=== PATIENT | female | born 1970 | race African-American/Black ===

== ENCOUNTER 2016-12-02 23:12 | Emergency (ER) | payer OTHER ==
[~2016-12-02] VITALS: Ht 165.1 cm; Wt 76.0 kg
[~2016-12-02 23:12] MED LIST: GABA100C4 PO; HYDR-3129 PO; JUNE1.5T PO; SPRI28TA PO; XANA1TAB6 PO
[2016-12-02 23:14] VITALS: BP 161/97; PULSE 76; RESP 16; TEMP 98.2; O2SAT 100
[2016-12-03] MEDS ORDERED: NEUR800T PO (00:48)
[2016-12-03] MEDS ORDERED: XANA1TAB2 PO (00:48)
[2016-12-03] MEDS ORDERED: HYDR-3535 PO (00:48)
[2016-12-03] MEDS ORDERED: METHOCARBAMOL 500 MG TAB PO ONE (01:15)
--- NOTE | 2016-12-03 01:15 | PD ---
HPI Chief Complaint: Pain: Acute or Chronic Time Seen by Provider: 01:11 Travel History International Travel<30 days: No Contact w/Intl Traveler<30days: No Traveled to known affect area: No History of Present Illness HPI Patient comes in complaining of right shoulder pain ongoing for 3 days. Patient states she was hit in the right shoulder by a garage door 3 days ago having throbbing aching pain radiates back and forth between her shoulder and neck is worse with movement right upper shoulder. Patient since developed right upper anterior chest wall pain is worse with deep inspiration. Patient states she's been taking her Lortab, gabapentin, and ibuprofen with no improvement of her symptoms. Patient denies any other known trauma, shortness of breath, numbness or tingling, headache, loss or change in bowel or bladder, or fevers. PFSH Past Medical History Arthritis: Yes Blood Disorders: No Anxiety: Yes Depression: Yes Heart Rhythm Problems: No Cancer: No Cardiac Catheterization: No Cardiovascular Problems: No High Cholesterol: No Congestive Heart Failure: No Diabetes: No Diminished Hearing: No Endocrine: No Gastrointestinal Disorders: No Genitourinary: No Headaches: Yes Hypertension: No Immune Disorder: No Musculoskeletal: Yes (CHRONIC BACK PAIN) Neurologic: Yes (CHRONIC BACK PAIN) Psychiatric: No Reproductive: Yes Respiratory: Yes Immunizations Current: Yes PNEUMOCCOCAL Vaccine (Year): 2 ?: Not LMP: 11/10/16 : 3 Para: 2 Miscarriage: 0 : 0 Ectopic : Yes Dilation and Curettage (D&C): Yes Tubal Ligation: Yes Past Surgical History Abdominal Surgery: Yes (SPLEEN REMOVED AT AGE OF 3 S/P TRAUMA) Body Medical Devices: TITANIUM ANUSHA L5/S1 Coronary Artery Bypass Graft: No Endocrine Surgery: Yes (SPLEEN REMOVAL) Insulin Pump: No Other Surgery: Yes (SPLEENECTOMY) Family History Family Myocardial Infarction: Yes Social History Alcohol Use: Yes (OCCASIONAL) Tobacco Use: No Substance Use: No Allergies-Medications (Allergen,Severity, Reaction): Coded Allergies: Flagyl (Verified Allergy, Severe, NAUSEA/VOMITING, 12/03/16) Sulfa (Verified Allergy, Severe, Nausea/Vomiting, 12/03/16) Morphine (Unverified Adverse Reaction, Intermediate, NAUSEA/VOMITING, 12/03) Reported Meds & Prescriptions Reported Meds & Active Scripts Active Robaxin (Methocarbamol) 750 Mg Tab 750 Mg PO Q8HR PRN Reported Lortab (Hydrocodone-Acetaminophen) 10-325 Mg Tab 1 Tab PO Q6H PRN Neurontin (Gabapentin) 800 Mg Tab 800 Mg PO TID Xanax (Alprazolam) 1 Mg Tab 1 Mg PO Q8H PRN Review of Systems Except as stated in HPI: all other systems reviewed are Neg Physical Exam Narrative GENERAL: Well-developed, overly nourished, in no acute distress, and non-ill appearing. SKIN: Warm and dry. HEAD: Atraumatic. Normocephalic. EYES: Pupils equal and round. EOMI. No scleral icterus. No injection or drainage. ENT: No nasal bleeding or discharge. Mucous membranes pink and moist. NECK: Trachea midline. Supple. No nuclear rigidity. CARDIOVASCULAR: Regular rate and rhythm. No murmur appreciated. Radial pulses 2+ Bilaterally. Capillary refill is 2 seconds. RESPIRATORY: No accessory muscle use. No respiratory distress. Clear to auscultation. Breath sounds equal bilaterally. MUSCULOSKELETAL: No obvious deformities. No clubbing. No cyanosis. No edema. Full range of motion.Shoulder:FROM equal BL with passive flexion, extension, Abduction, Adduction, internal/external rotation, and pronation/supination. Sensation equal BL deltoid muscles. Pulses equal BL distal to injury. Capillary refill less than 2 seconds distal to injury and equal BL. FROM distal to injury and equal BL. Strength distal to injury equal BL. NV intact distal to injury equal BL. Flexion and extension of thumb equal BL. Equal strength and movement with abduction/adductions of BL fingers. Metalizing Supervisor strength equal BL. Patient reports pain to palpation anterior aspect of right shoulder that is worse with passive movement. NEUROLOGICAL: Awake and alert. No obvious cranial nerve deficits. Motor grossly within normal limits. Normal speech. PSYCHIATRIC: Appropriate mood and affect; insight and judgment normal. Data Data Last Documented VS Vital Signs Date Time Temp Pulse Resp B/P Pulse Ox O2 Delivery O2 Flow Rate FiO2 12/03/16 00:48 14 12/02/16 23:14 98.2 76 161/97 100 Orders Chest, Single Ap (12/03/16 ) Shoulder, Complete (>2vws) (12/03/16 ) Methocarbamol (Robaxin) (12/03/16 01:15) Splint Or Brace Apply/Monitor (12/03/16 02:10) Dexamethasone Inj (Decadron Inj) (12/03/16 02:15) MDM Medical Decision Making Medical Screen Exam Complete: Yes Emergency Medical Condition: Yes Differential Diagnosis Fracture, strain, contusion, pneumothorax, costochondritis, other Narrative Course There is no clinical evidence for fracture. There is no clinical evidence to suspect bony injury by exam. Radiographic examination revealed no fracture seen at this time. No obvious ligamental injury or internal derangement is noted at this time. The distal extremity appears neurovascularly intact, without evidence of neurovascular injury nor compartment syndrome. Tendon exam also was intact. The effected limb was splinted. The patient was discharged and given warnings for vascular compromise. The patient is to follow up with Orthopedics. The patient agrees with plan. Patient in no obvious distress upon re-evaluation. All pertinent Radiology result(s) discussed with patient. Patient was asked if they wanted to speak to my attending, which the patient did not wish to do at this time. Any questions/ concerns in reference to patient diagnosis/condition discussed and clarified prior to patient's discharge. Reinforced sheer importance of close follow up with patient's primary physician or primary care clinic and/or orthopedics. Instructed patient to return to ED immediately, if symptoms return/worsen. Pt showed understanding of above instructions. Further instructions and recommendations were detailed in discharge paperwork. Pt ambulated without difficulty out of ED at discharge. Diagnosis Primary Impression: Right shoulder injury Qualified Code: S49.91XA - Right shoulder injury, initial encounter Patient Instructions: General Instructions, How to Use a Sling (GEN), Shoulder Pain (ED) Additional Instructions: Follow-up with your primary care physician and/or orthopedics this week for reevaluation. Take all medication as prescribed. Wear sling as needed for comfort. Return to the emergency department if symptoms get worse. Med/Other Pt SpecificInfo: Prescription(s) given Scripts Methocarbamol (Robaxin)750 Mg [id number] Mg PO Q8HR PRN (MUSCLE PAIN) #12 TAB Ref 0 Prov:Richy Quinones MD 12/03/16 Disposition: 01 DISCHARGE HOME Condition: Stable Sulaiman Davis Dec 03, 2016 01:15
--- NOTE | 2016-12-03 01:53 | RADRPT ---
EXAM DATE/TIME: 12/03/2016 01:42 [facility] COMPARISON: No previous studies available for comparison. INDICATIONS : Right shoulder and neck pain from a crushing injury brought on by a garage door. MEDICAL HISTORY : None. SURGICAL HISTORY : None. ENCOUNTER: Initial ACUITY: 4 - 6 days PAIN SCORE: 9/10 LOCATION: Right shoulder FINDINGS: No fracture is seen. The glenohumeral joint appears aligned. There is some narrowing of the glenohume ral joint. There is a bony density seen inferior to the medial aspect of the humeral head likely rela jairo to prior hypertrophic change versus less likely a loose body. CONCLUSION: Suspected degenerative change at the glenohumeral joint with prominent hypertrophic change at the inf erior medial humeral head. Brock Causey MD on December 03, 2016 at 1:47 Board Certified Radiologist. This report was verified electronically.
--- NOTE | 2016-12-03 02:04 | RADRPT ---
EXAM DATE/TIME: 12/03/2016 01:41 [facility] COMPARISON: CHEST SINGLE AP, March 18, 2016, 22:40. INDICATIONS : Right shoulder and neck pain from a crushing injury brought on by a garage door. MEDICAL HISTORY : None. SURGICAL HISTORY : None. ENCOUNTER: Initial ACUITY: 4 - 6 days PAIN SCORE: 9/10 LOCATION: Right Shoulder. FINDINGS: A single view of the chest demonstrates the lungs to be symmetrically aerated without evidence of mas s, infiltrate or effusion. The cardiomediastinal contours are unremarkable. Spurs are seen the thora cic spine. CONCLUSION: No acute disease. Brock Causey MD on December 03, 2016 at 2:02 Board Certified Radiologist. This report was verified electronically.
[2016-12-03] MEDS ORDERED: ROBA750T PO (02:12)
[2016-12-03] MEDS ORDERED: DEXAMETHASONE SOD PHOS 4 MG/ML VIAL IM ONE (02:15)
== END 2016-12-03 02:38 | disposition home or self-care (01) ==
LOC: NEPB 23:12
DX: S49.91XA Unspecified injury of right shoulder and upper arm, initial encounter (principal); W20.8XXA Other cause of strike by thrown, projected or falling object, initial encounter; Y92.008 Other place in unspecified non-institutional (private) residence as the place of occurrence of the external cause; Y99.8 Other external cause status
CPT/HCPCS: 71010; 73030; 96372; 99283; J1100

== ENCOUNTER 2017-03-29 00:26 | Emergency (ER) | payer OTHER ==
[~2017-03-29] VITALS: Ht 167.6 cm; Wt 76.0 kg
[~2017-03-29 00:26] MED LIST changes: -GABA100C4 PO; -HYDR-3129 PO; +HYDR-3535 PO; -JUNE1.5T PO; +NEUR800T PO; +ROBA750T PO; -SPRI28TA PO; +XANA1TAB2 PO; -XANA1TAB6 PO
[2017-03-29 00:31] VITALS: BP 163/101; PULSE 74; RESP 18; TEMP 98.9; O2SAT 97
[2017-03-29] MEDS ORDERED: NEUR300C PO (00:46)
--- NOTE | 2017-03-29 00:57 | PD ---
HPI Chief Complaint: Back/ Neck Pain or Injury Time Seen by Provider: 00:53 Travel History International Travel<30 days: No Contact w/Intl Traveler<30days: No Traveled to known affect area: No History of Present Illness HPI 46-year-old white female presents to emergency Department with complaints of worsening chronic back pain with right sciatica. She states that she is under the care of Dr. Dorsey her pain doctor. She was seen last . She was told to increase her Lortab tens to 6 times a day. She states that she also had been seen by her primary care doctor. She states that she does have flare ups of her chronic back pain with sciatica in the past but this seems worse than usual. She states that her right leg gives out due to pain. She denies any acute bowel or bladder changes. No focal numbness or tingling. No recent trauma. History of lumbar discectomy and fusion in the past. PFSH Past Medical History Arthritis: Yes Blood Disorders: No Anxiety: Yes Depression: Yes Heart Rhythm Problems: No Cancer: No Cardiac Catheterization: No Cardiovascular Problems: No High Cholesterol: No Congestive Heart Failure: No Diabetes: No Diminished Hearing: No Endocrine: No Gastrointestinal Disorders: No Genitourinary: No Headaches: Yes Hypertension: No Immune Disorder: No Musculoskeletal: Yes (CHRONIC BACK PAIN) Neurologic: Yes (CHRONIC BACK PAIN) Psychiatric: No Reproductive: Yes Respiratory: Yes Immunizations Current: Yes Tetanus Vaccination: < 5 Years PNEUMOCCOCAL Vaccine (Year): 2 ?: Not : 3 Para: 2 Miscarriage: 0 : 0 Ectopic : Yes Dilation and Curettage (D&C): Yes Tubal Ligation: Yes Past Surgical History Abdominal Surgery: Yes (SPLEEN REMOVED AT AGE OF 3 S/P TRAUMA) Body Medical Devices: TITANIUM ANUSHA L5/S1 Coronary Artery Bypass Graft: No Endocrine Surgery: Yes (SPLEEN REMOVAL) Insulin Pump: No Other Surgery: Yes (SPLEENECTOMY) Family History Family Myocardial Infarction: Yes Social History Alcohol Use: Yes (OCCASIONAL) Tobacco Use: No Substance Use: No Allergies-Medications (Allergen,Severity, Reaction): Coded Allergies: Flagyl (Verified Allergy, Severe, NAUSEA/VOMITING, 03/29/17) Sulfa (Verified Allergy, Severe, Nausea/Vomiting, 03/29/17) Morphine (Unverified Adverse Reaction, Intermediate, NAUSEA/VOMITING, 03/29) Reported Meds & Prescriptions Reported Meds & Active Scripts Active Reported Neurontin (Gabapentin) 300 Mg Cap 900 Mg PO TID Lortab (Hydrocodone-Acetaminophen) 10-325 Mg Tab 1 Tab PO Q6H PRN Xanax (Alprazolam) 1 Mg Tab 1 Mg PO Q8H PRN Review of Systems Except as stated in HPI: all other systems reviewed are Neg Physical Exam Narrative GENERAL: Well-developed, well-nourished in no acute distress. Nontoxic appearing. HEAD: Normocephalic, atraumatic. EYES: Pupils equal round and reactive. Extraocular motions intact. No scleral icterus. No injection or drainage. ENT: TMs clear without erythema. The external auditory canals clear. Nose: clear . Posterior pharynx is pink and moist. No tonsillar edema or exudate. Uvula midline. Airway patent. NECK: Trachea midline.Supple, nontender, moves head freely. No central bony tenderness or spasm. CARDIOVASCULAR: Regular rate and rhythm without murmurs, gallops, or rubs. RESPIRATORY: Clear to auscultation. Breath sounds equal bilaterally. No wheezes , rales, or rhonchi. GASTROINTESTINAL: Abdomen soft, non-tender, nondistended. No hepato-splenomegaly , or palpable masses. No guarding. EXTREMITIES: No clubbing, cyanosis, or edema. No joint tenderness, effusion, or edema noted. BACK: No central bony tenderness. Without deformity or crepitance. No flank tenderness. Patient complains of right paralumbar and right SI region tenderness. Positive straight leg raise on the right at 90. Patient is able to heel and toe stand. Deep tendon reflexes are 3+ bilaterally. Patient is able to sit up in bed at 90. She swings her legs over the edge of the bed and stands up freely. No saddle anesthesia. Data Data Last Documented VS Vital Signs Date Time Temp Pulse Resp B/P Pulse Ox O2 Delivery O2 Flow Rate FiO2 03/29/17 00:31 98.9 74 18 163/101 97 Room Air MDM Medical Decision Making Medical Screen Exam Complete: Yes Emergency Medical Condition: Yes Medical Record Reviewed: Yes Differential Diagnosis MDM: High Differential diagnoses: Fracture, sprain, strain, HNP, nerve or vascular injury , epidural abscess, pilonidal cyst Narrative Course This is acute exacerbation of chronic back pain with right sciatica. I've agreed to give the patient a shot of Decadron 10 mg IM, and Dilaudid 1 mg IM. She is also given 25 mg of Phenergan by mouth. Diagnosis Primary Impression: acute exacerbation of chronic back pain with sciatica Patient Instructions: Narcotic given in the ED Additional Instructions: Rest. Follow-up with your doctor Willian or your primary care doctor tomorrow for further pain control and workup of your worsening pain. Med/Other Pt SpecificInfo: No Change to Meds Disposition: 01 DISCHARGE HOME Condition: Stable Pantera Lenz Mar 29, 2017 00:57
[2017-03-29] MEDS ORDERED: PROMETHAZINE HCL 25 MG TAB PO ONE (01:00)
[2017-03-29] MEDS ORDERED: DEXAMETHASONE SOD PHOS 20 MG/5 ML VIAL IM ONE (01:00)
[2017-03-29] MEDS ORDERED: HYDROmorphone HCL PF 1 MG/ML VIAL IM ONE (01:00)
== END 2017-03-29 02:23 | disposition home or self-care (01) ==
LOC: NEPD 00:26
DX: M54.41 Lumbago with sciatica, right side (principal)
CPT/HCPCS: 96372; 99284; J1100; J1170; Q0169

== ENCOUNTER 2017-07-23 15:46 | Emergency (ER) | payer OTHER ==
[~2017-07-23] VITALS: Ht 167.6 cm; Wt 77.0 kg
[~2017-07-23 15:46] MED LIST changes: +NEUR300C PO; -NEUR800T PO; -ROBA750T PO
[2017-07-23 15:47] VITALS: BP 165/85; PULSE 84; RESP 16; TEMP 98.2; O2SAT 98
--- NOTE | 2017-07-23 16:05 | PD ---
Physical Exam Date Seen by Provider: Jul 23, 2017 Time Seen by Provider: 16:04 Narrative 46 yo female for evaluation of SOB. History of SOB for four days. No chest pain. Rest makes it better. No history of this. No injuries. Vitals are stable in triage. Awaiting bed placement. Data Data Last Documented VS Vital Signs Date Time Temp Pulse Resp B/P (MAP) Pulse Ox O2 Delivery O2 Flow Rate FiO2 07/23/17 15:47 98.2 84 16 165/85 (111) 98 Orders Orders Chest, Single Ap (07/23/17 ) [facility] Medical Record Reviewed: Yes Supervised Visit with MARIEL: No Sunil Fry Jul 23, 2017 16:05
--- NOTE | 2017-07-23 17:02 | RADRPT ---
EXAM DATE/TIME: 07/23/2017 16:31 [facility] COMPARISON: No previous studies available for comparison. INDICATIONS : Short of breath MEDICAL HISTORY : None. SURGICAL HISTORY : None. ENCOUNTER: Initial ACUITY: 4 - 6 days PAIN SCORE: 4/10 LOCATION: Bilateral chest FINDINGS: PA and lateral views of the chest demonstrate the lungs to be symmetrically aerated without evidence of mass, infiltrate or effusion. The cardiomediastinal contours are unremarkable. Osseous structure s are intact. There is multilevel degenerative change throughout the spine. CONCLUSION: 1. No acute cardiopulmonary disease. Nicholas Martínez MD on July 23, 2017 at 17:00 Board Certified Radiologist. This report was verified electronically.
[2017-07-23 19:20] VITALS: BP 149/90; PULSE 82; RESP 18; O2SAT 99
[2017-07-23] MEDS ORDERED: LAMI250T PO (19:24)
[2017-07-23] MEDS ORDERED: SODIUM CHLORIDE 0.9% FLUSH 10 ML FLUSH IVF PRN (19:30)
[2017-07-23 20:06] LABS: AUTOMATED NEUTROPHIL # 3.9 TH/MM3 (1.8-7.7); BASOPHIL % 0.6 % (0.0-2.0); EOSINOPHIL # 0.1 TH/MM3 (0-0.4); EOSINOPHIL % 0.8 % (0.0-4.0); HEMATOCRIT 41.9 % (35.0-46.0); HEMO FLAGS DIFF FINAL; LYMPH % 34.6 % (9.0-44.0); LYMPHOCYTE # 2.5 TH/MM3 (1.0-4.8); MEAN CELL VOLUME 96.5 FL (80.0-100.0); MEAN CORPUSCULAR HEMOGLOBIN 32.9 PG (27.0-34.0); MEAN CORPUSCULAR HGB CONC 34.1 % (32.0-36.0); MONO % 8.9 % (0.0-8.0); NEUT % 55.1 % (16.0-70.0); PLATELET COUNT 328 TH/MM3 (150-450); RED BLOOD COUNT 4.34 MIL/MM3 (4.00-5.30); RED CELL DISTRIBUTION WIDTH 13.2 % (11.6-17.2); WHITE BLOOD COUNT 7.1 TH/MM3 (4.0-11.0)
[2017-07-23 20:23] LABS: BLOOD, URINE TRACE (NEG); COMMENT (UR) CULT NOT INDICATED; CULTURE IF INDICATED CULT NOT INDICATED; GLUCOSE,URINE NEG (NEG); KETONE, URINE NEG (NEG); MUCUS URINE FEW /lpf (OCC); NITRITE,URINE NEG (NEG); SQUAMOUS EPITHELIAL CELL URINE 1 /hpf (0-5); URINE COLOR YELLOW (YELLW/STRAW)
[2017-07-23 20:26] LABS: ANION GAP 9 MEQ/L (5-15); BICARBONATE 22.3 MEQ/L (21.0-32.0); BLOOD UREA NITROGEN 12 MG/DL (7-18); CHLORIDE 107 MEQ/L (98-107); GLOMERULAR FILTRATION RATE 90 ML/MIN (>89); MAGNESIUM 2.3 MG/DL (1.5-2.5); POTASSIUM 3.7 MEQ/L (3.5-5.1); SODIUM (NA) 138 MEQ/L (136-145)
[2017-07-23 20:28] LABS: CREATINE KINASE 106 U/L (26-192)
[2017-07-23 20:40] LABS: CKMB 0.7 NG/ML (0.5-3.6)
[2017-07-23] MEDS ORDERED: IOHEXOL 350 MG/ML 10 ML VIAL (for RAD DIAG) IVCONTRAST ONE (22:45)
--- NOTE | 2017-07-23 22:50 | RADRPT ---
EXAM DATE/TIME: 07/23/2017 22:25 [facility] COMPARISON: No previous studies available for comparison. INDICATIONS : Shortness of breath x5 days. IV CONTRAST: 75 cc Omnipaque 350 (iohexol) IV RADIATION DOSE: 7.86 CTDIvol (mGy) MEDICAL HISTORY : None SURGICAL HISTORY : Splenectomy. Tubal ligation. ENCOUNTER: Initial ACUITY: 4 - 6 days PAIN SCALE: 0/10 LOCATION: chest TECHNIQUE: Volumetric scanning of the chest was performed using a pulmonary embolism protocol MIP images were re constructed. Using automated exposure control and adjustment of the mA and/or kV according to patien t size, radiation dose was kept as low as reasonably achievable to obtain optimal diagnostic quality images. DICOM format image data is available electronically for review and comparison. Follow-up recommendations for detected pulmonary nodules are based at a minimum on nodule size and pa tient risk factors according to Fleischner Society Guidelines. FINDINGS: PULMONARY ARTERIES: No filling defects are seen in the pulmonary arteries through the segmental level. LUNGS: There is no consolidation or pneumothorax . No concerning pulmonary nodule is visualized. PLEURAE: There is no pleural thickening or pleural effusion. MEDIASTINUM: There is good visualization of the great vessels of the middle mediastinum. No evidence of mediastin al or hilar adenopathy/mass. MUSCULOSKELETAL: Within normal limits for patient age. MISCELLANEOUS: The visualized upper abdominal organs demonstrate no acute abnormality. CONCLUSION: No evidence of pulmonary embolism Brock Watkins MD on July 23, 2017 at 22:46 Board Certified Radiologist. This report was verified electronically.
[2017-07-23 23:13] VITALS: BP 133/82; PULSE 81; RESP 16; O2SAT 100
[2017-07-24] MEDS ORDERED: ALBU6.7H INH (00:09)
--- NOTE | 2017-07-24 00:11 | PD ---
HPI Chief Complaint: Respiratory Symptoms Time Seen by Provider: 19:19 Travel History International Travel<30 days: No Contact w/Intl Traveler<30days: No Traveled to known affect area: No History of Present Illness HPI 46-year-old female presents to the emergency department for 4 days of shortness of breath. Patient states that she does not recall any fever or chills. Patient does have sinus congestion and sinus drainage. Patient has had nonproductive cough. Patient has also had ear pain. Patient denies any neck pain or stiffness. Chest pain is worsened by deep inspiration and improves with shallow breathing. Patient denies any long distance travel protracted bedrest surgical procedure or personal history of clotting disorder. Patient states mother has had blood clots in her legs in the past. Patient rates pain as moderate. Patient has taken no medications for symptom relief. Patient is not taken ibuprofen. Patient states that she's had no abdominal pain no flank pain no dysuria frequency or urgency. Patient has not noticed any lower extremity pain or swelling. PFSH Past Medical History Narrative Medical No tobacco use nursing notes reviewed Anxiety depression arthritis Arthritis: Yes Blood Disorders: No Anxiety: Yes Depression: Yes Heart Rhythm Problems: No Cancer: No Cardiac Catheterization: No Cardiovascular Problems: No High Cholesterol: No Congestive Heart Failure: No Diabetes: No Diminished Hearing: No Endocrine: No Gastrointestinal Disorders: No Genitourinary: No Headaches: Yes Hypertension: No Immune Disorder: No Musculoskeletal: Yes (CHRONIC BACK PAIN) Neurologic: Yes (CHRONIC BACK PAIN) Psychiatric: No Reproductive: Yes Respiratory: Yes Immunizations Current: Yes Tetanus Vaccination: > 5 Years Influenza Vaccination: No PNEUMOCCOCAL Vaccine (Year): 2 ?: Not LMP: 07/03/17 : 3 Para: 2 Miscarriage: 0 : 0 Ectopic : Yes Dilation and Curettage (D&C): Yes Tubal Ligation: Yes Past Surgical History Abdominal Surgery: Yes (SPLEEN REMOVED AT AGE OF 3 S/P TRAUMA) Body Medical Devices: TITANIUM ANUSHA L5/S1 Coronary Artery Bypass Graft: No Endocrine Surgery: Yes (SPLEEN REMOVAL) Insulin Pump: No Other Surgery: Yes (SPLEENECTOMY) Family History Family Myocardial Infarction: Yes Social History Alcohol Use: Yes ("OCCASIONALLY") Tobacco Use: No Substance Use: No Allergies-Medications (Allergen,Severity, Reaction): Coded Allergies: Sulfa (Sulfonamide Antibiotics) (Unverified Allergy, Severe, Nausea/ Vomiting, 07/23/17) metronidazole (Unverified Allergy, Severe, NAUSEA/VOMITING, 07/23/17) morphine (Unverified Adverse Reaction, Intermediate, NAUSEA/VOMITING, 07/30) Reported Meds & Prescriptions Reported Meds & Active Scripts Active Proventil Hfa 6.7 GM Inh (Albuterol Sulfate) 90 Mcg/Act Aer 2 Puff INH Q4-6H PRN Reported Lamisil (Terbinafine) 250 Mg Tab 250 Mg PO DAILY Neurontin (Gabapentin) 300 Mg Cap 900 Mg PO TID Lortab (Hydrocodone-Acetaminophen) 10-325 Mg Tab 1 Tab PO Q6H PRN Xanax (Alprazolam) 1 Mg Tab 1 Mg PO Q8H PRN Review of Systems Except as stated in HPI: all other systems reviewed are Neg General / Constitutional: No: Fever, Chills HENT: No: Congestion Cardiovascular: Positive: Chest Pain or Discomfort Respiratory: Positive: Shortness of Breath, Wheezing Gastrointestinal: No: Nausea, Vomiting, Abdominal Pain Genitourinary: No: Flank Pain Musculoskeletal: No: Myalgias, Arthralgias Skin: No Rash Neurologic: No: Weakness Psychiatric: No: Anxiety, Depression Hematologic/Lymphatic: No: Easy Bruising Physical Exam Narrative GENERAL: Well developed well-nourished female in no acute distress no respiratory distress SKIN: Warm and dry. HEAD: Normocephalic. EYES: No scleral icterus. No injection or drainage. NECK: Supple, trachea midline. No JVD or lymphadenopathy. CARDIOVASCULAR: Regular rate and rhythm without murmurs, gallops, or rubs. RESPIRATORY: Breath sounds equal bilaterally. No accessory muscle use. GASTROINTESTINAL: Abdomen soft, non-tender, nondistended. MUSCULOSKELETAL: No cyanosis, or edema. BACK: Nontender without obvious deformity. No CVA tenderness. Data Data Last Documented VS Vital Signs Date Time Temp Pulse Resp B/P (MAP) Pulse Ox O2 Delivery O2 Flow Rate FiO2 07/24/17 01:00 07/23/17 23:13 81 16 100 Room Air 07/23/17 15:47 98.2 Orders Orders Chest, Pa & Lat (07/23/17 ) Complete Blood Count With Diff (07/23/17 19:19) Basic Metabolic Panel (Bmp) (07/23/17 19:19) B-Type Natriuretic Peptide (07/23/17 19:19) Magnesium (Mg) (07/23/17 19:19) Ckmb (Isoenzyme) Profile (07/23/17 19:19) Troponin I (07/23/17 19:19) Urinalysis - C+S If Indicated (07/23/17 19:19) Iv Access Insert/Monitor (07/23/17 19:19) Electrocardiogram (07/23/17 19:19) Ecg Monitoring (07/23/17:19) Oximetry (07/23/17:19) Oxygen Administration (07/23/17 19:19) Sodium Chloride 0.9% Flush (Ns Flush) (07/23/17 19:30) Ed Urine Pregnancytest Poc (07/23/17:19) Influenzae A/B Antigen (07/23/17 19:19) CKMB (07/23/17 19:30) CKMB% (07/23/17 19:30) D-Dimer (07/23/17 20:50) Ct Pulmonary Angiogram (07/23/17 ) Iohexol 350 Inj (Omnipaque 350 Inj) (07/23/17 22:45) Ed Discharge Order (07/24/17 00:05) Labs Laboratory Tests Test 07/23/17 19:30 07/23/17 20:05 07/23/17 20:30 White Blood Count 7.1 TH/MM3 Red Blood Count 4.34 MIL/MM3 Hemoglobin 14.3 GM/DL Hematocrit 41.9 % Mean Corpuscular Volume 96.5 FL Mean Corpuscular Hemoglobin 32.9 PG Mean Corpuscular Hemoglobin Concent 34.1 % Red Cell Distribution Width 13.2 % Platelet Count 328 TH/MM3 Mean Platelet Volume 8.3 FL Neutrophils (%) (Auto) 55.1 % Lymphocytes (%) (Auto) 34.6 % Monocytes (%) (Auto) 8.9 % Eosinophils (%) (Auto) 0.8 % Basophils (%) (Auto) 0.6 % Neutrophils # (Auto) 3.9 TH/MM3 Lymphocytes # (Auto) 2.5 TH/MM3 Monocytes # (Auto) 0.6 TH/MM3 Eosinophils # (Auto) 0.1 TH/MM3 Basophils # (Auto) 0.0 TH/MM3 CBC Comment DIFF FINAL Differential Comment Blood Urea Nitrogen 12 MG/DL Creatinine 0.82 MG/DL Random Glucose 81 MG/DL Calcium Level 8.7 MG/DL Magnesium Level 2.3 MG/DL Sodium Level 138 MEQ/L Potassium Level 3.7 MEQ/L Chloride Level 107 MEQ/L Carbon Dioxide Level 22.3 MEQ/L Anion Gap 9 MEQ/L Estimat Glomerular Filtration Rate 90 ML/MIN Total Creatine Kinase 106 U/L Creatine Kinase MB 0.7 NG/ML Troponin I LESS THAN 0.02 NG/ML B-Type Natriuretic Peptide 17 PG/ML Urine Color YELLOW Urine Turbidity CLEAR Urine pH 6.0 Urine Specific [place] 1.025 Urine Protein TRACE mg/dL Urine Glucose (UA) NEG mg/dL Urine Ketones NEG mg/dL Urine Occult Blood TRACE Urine Nitrite NEG Urine Bilirubin NEG Urine Urobilinogen LESS THAN 2.0 MG/DL Urine Leukocyte Esterase NEG Urine RBC 10 /hpf Urine WBC 1 /hpf Urine Squamous Epithelial Cells 1 /hpf Urine Mucus FEW /lpf Microscopic Urinalysis Comment CULT NOT INDICATED D-Dimer Quantitative (PE/DVT) 0.64 MG/L FEU [facility] Medical Decision Making Medical Screen Exam Complete: Yes Emergency Medical Condition: Yes Medical Record Reviewed: Yes Interpretation(s) d-dimer: 0.64, elevated CTA pulmonary: no PE per reading radiologist Last Impressions Chest X-Ray 07/23/17 0000 Signed Impressions: Service Date/Time: Sunday, July 23, 2017 16:31 - CONCLUSION: 1. No acute cardiopulmonary disease. 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 Time to perform other separately billable procedures was not included in the critical care time. My time did not include minutes spent treating any other patients simultaneously or on activities that did not directly contribute to the patient's treatment. The services I provided to this patient were to treat and/or prevent clinically significant deterioration that could result in: Myocardial infarction pulmonary embolism I provided critical care services requiring my management, as noted below: Chart data review, documentation time, medication orders and management, vital sign assessments/reviewing monitor data, ordering and reviewing lab tests, ordering and interpreting/reviewing x-rays and diagnostic studies, care of the patient and discussion of the patient with the admitting physicians. Diagnosis Primary Impression: Shortness of breath Additional Impression: Allergic sinusitis Referrals: Primary Care Physician call for appointment Patient Instructions: General Instructions Additional Instructions: Increase fluid hydration Follow-up with primary care provider Use [id number] allergy/cough medication as directed May use prescription inhaler as needed for wheezing/shortness of breath Return to the emergency department for any concerns Med/Other Pt SpecificInfo: Prescription(s) given Scripts Albuterol 6.7 GM Inh (Proventil Hfa 6.7 GM Inh) 90 Mcg/Act Aer 2 PUFF INH Q4-6H Y for SHORTNESS OF BREATH, #1 INHALER 0 Refills Prov: Suri Yeager MD 07/24/17 Disposition: 01 DISCHARGE HOME Condition: Stable Suri Yeager MD Jul 24, 2017 00:11
--- NOTE | 2017-07-24 23:47 | EKG ---
Date Performed: 07/23/2017 Time Performed: 19:30:14 PTAGE: 46 years EKG: Sinus rhythm VOLTAGE CRITERIA FOR LVH ABNORMAL ECG PREVIOUS TRACING : 03/18/2016 21.33 Compared to the previous tracing, LVH criteria now present DOCTOR: Deion Quinones Interpretating Date/Time 07/24/2017 23:45:37
== END 2017-07-24 01:00 | disposition home or self-care (01) ==
LOC: NEPC 15:46
DX: R06.02 Shortness of breath (principal); J30.9 Allergic rhinitis, unspecified; R94.31 Abnormal electrocardiogram [ECG] [EKG]
CPT/HCPCS: 71020; 71275; 80048; 81001; 82550; 82552; 83735; 83880; 84484; 84703; 85025; 85379; 87804; 93005; 99291; Q9967

== ENCOUNTER 2017-08-09 21:56 | Emergency (ER) | payer OTHER ==
[~2017-08-09] VITALS: Ht 165.1 cm; Wt 75.5 kg
[~2017-08-09 21:56] MED LIST changes: +ALBU6.7H INH; +LAMI250T PO
[2017-08-09 22:01] VITALS: BP 143/88; PULSE 82; RESP 15; TEMP 97.8; O2SAT 82
--- NOTE | 2017-08-09 23:58 | RADRPT ---
EXAM DATE/TIME: 08/09/2017 23:42 [facility] COMPARISON: No previous studies available for comparison. INDICATIONS : Entire leg pain, most severe in the posterior area between knee and hip, from a fall six days ago. MEDICAL HISTORY : None. SURGICAL HISTORY : Splenectomy. Tubal ligation. ENCOUNTER: Initial ACUITY: 4 - 6 days PAIN SCORE: 6/10 LOCATION: Right leg FINDINGS: Two view examination of the right femur demonstrates no evidence of fracture or dislocation. Bony mi neralization is normal. The soft tissue structures are intact. CONCLUSION: Intact right femur. Brock Conner MD on August 09, 2017 at 23:56 Board Certified Radiologist. This report was verified electronically.
--- NOTE | 2017-08-09 23:59 | RADRPT ---
EXAM DATE/TIME: 08/09/2017 23:44 [facility] COMPARISON: No previous studies available for comparison. INDICATIONS : Entire leg pain, most severe in the posterior area between knee and hip, from a fall six days ago. MEDICAL HISTORY : None. SURGICAL HISTORY : Splenectomy. Tubal ligation. ENCOUNTER: Initial ACUITY: 4 - 6 days PAIN SCORE: 6/10 LOCATION: Right leg FINDINGS: Four view examination of the right knee demonstrates no evidence of fracture or dislocation. Bony mi neralization is normal. The articular surfaces are intact. The suprapatellar soft tissues have a no rmal configuration. CONCLUSION: No fracture, subluxation or effusion of the right knee. Brock Conner MD on August 09, 2017 at 23:58 Board Certified Radiologist. This report was verified electronically.
--- NOTE | 2017-08-10 | RADRPT ---
EXAM DATE/TIME: 08/09/2017 23:46 [facility] COMPARISON: No previous studies available for comparison. INDICATIONS : Entire leg pain, most severe in the posterior area between knee and hip, from a fall six days ago. MEDICAL HISTORY : None. SURGICAL HISTORY : Splenectomy. Tubal ligation. ENCOUNTER: Initial ACUITY: 4 - 6 days PAIN SCORE: 6/10 LOCATION: Right leg FINDINGS: Right tibia and fibula are intact an abnormal morphology. Mild pretibial soft tissue swelling at the level of the proximal/mid shaft. No radiopaque foreign body. CONCLUSION: Intact right tibia and fibula. Brock Conner MD on August 09, 2017 at 23:59 Board Certified Radiologist. This report was verified electronically.
--- NOTE | 2017-08-10 00:11 | PD ---
HPI Chief Complaint: Injury Time Seen by Provider: 23:00 Travel History International Travel<30 days: No Contact w/Intl Traveler<30days: No Traveled to known affect area: No History of Present Illness HPI This is a 46-year-old female who presents to the emergency department having fallen several days ago on a slippery floor injuring her right leg. Since then she's had severe pain in her right leg, constant, worse with weightbearing, improved with rest associated with bruising and swelling. She says her leg is painful from the mid thigh all the way down to her foot. She denies any other injuries. PFSH Past Medical History Arthritis: Yes Blood Disorders: No Anxiety: Yes Depression: Yes Heart Rhythm Problems: No Cancer: No Cardiac Catheterization: No Cardiovascular Problems: No High Cholesterol: No Congestive Heart Failure: No Diabetes: No Diminished Hearing: No Endocrine: No Gastrointestinal Disorders: No Genitourinary: No Headaches: Yes Hypertension: No Immune Disorder: No Musculoskeletal: Yes (CHRONIC BACK PAIN) Neurologic: Yes (CHRONIC BACK PAIN) Psychiatric: No Reproductive: Yes Respiratory: Yes Immunizations Current: Yes PNEUMOCCOCAL Vaccine (Year): 2 ?: Not LMP: 07/22/17 : 3 Para: 2 Miscarriage: 0 : 0 Ectopic : Yes Dilation and Curettage (D&C): Yes Tubal Ligation: Yes Past Surgical History Abdominal Surgery: Yes (SPLEEN REMOVED AT AGE OF 3 S/P TRAUMA) Body Medical Devices: TITANIUM ANUSHA L5/S1 Coronary Artery Bypass Graft: No Endocrine Surgery: Yes (SPLEEN REMOVAL) Insulin Pump: No Other Surgery: Yes (SPLEENECTOMY) Family History Family Myocardial Infarction: Yes Social History Alcohol Use: Yes ("OCCASIONALLY") Tobacco Use: No Substance Use: No Allergies-Medications (Allergen,Severity, Reaction): Coded Allergies: Sulfa (Sulfonamide Antibiotics) (Verified Allergy, Severe, Nausea/Vomiting , 08/09/17) metronidazole (Verified Allergy, Severe, NAUSEA/VOMITING, 08/09/17) morphine (Verified Adverse Reaction, Intermediate, NAUSEA/VOMITING, ) Reported Meds & Prescriptions Reported Meds & Active Scripts Active Proventil Hfa 6.7 GM Inh (Albuterol Sulfate) 90 Mcg/Act Aer 2 Puff INH Q4-6H PRN Reported Lamisil (Terbinafine) 250 Mg Tab 250 Mg PO DAILY Neurontin (Gabapentin) 300 Mg Cap 900 Mg PO TID Lortab (Hydrocodone-Acetaminophen) 10-325 Mg Tab 1 Tab PO Q6H PRN Xanax (Alprazolam) 1 Mg Tab 1 Mg PO Q8H PRN Review of Systems General / Constitutional: No: Fever, Chills Cardiovascular: No: Chest Pain or Discomfort Physical Exam Narrative GENERAL:Well appearing, no acute distress SKIN: Ecchymoses over the posterior aspect of the right thigh and knee HEAD: Atraumatic. Normocephalic. EYES: Pupils equal and round. No injection or drainage. ENT: Moist mucous membranes NECK: Trachea midline. CARDIOVASCULAR: Regular rate and rhythm. No murmur appreciated. 2+ right DP pulse with normal capillary refill. RESPIRATORY: Clear to auscultation. Breath sounds equal bilaterally. GASTROINTESTINAL: Abdomen soft, non-tender, nondistended. MUSCULOSKELETAL: Swelling of the distal right thigh and upper right calf NEUROLOGICAL: Awake and alert. No obvious cranial nerve deficits. Moving all extremities. PSYCHIATRIC: Appropriate mood and affect; insight and judgment normal. Data Data Last Documented VS Vital Signs Date Time Temp Pulse Resp B/P (MAP) Pulse Ox O2 Delivery O2 Flow Rate FiO2 08/09/17 22:01 97.8 82 15 143/88 (106) 82 Room Air Orders Orders Femur (Ap & Lat/2vws) (08/09/17 ) Knee, Complete (4vws) (08/09/17 ) Tibia/Fibula (Ap/Lat) (08/09/17 ) MDM Medical Decision Making Medical Screen Exam Complete: Yes Emergency Medical Condition: Yes Differential Diagnosis Contusion, knee sprain, patella fracture, hematoma Narrative Course This is a 46-year-old female who presents to the emergency department having injured her right leg several days ago. She comes in for persistent pain and bruising. X-rays were obtained which were reassuring. I suspect she has a sprain. She was advised to Iván wrap and elevate the leg and follow-up with orthopedics if she is not improved in one week. Diagnosis Primary Impression: Contusion of right leg Qualified Codes: S80.11XA - Contusion of right lower leg, initial encounter Patient Instructions: General Instructions Additional Instructions: If you develop numbness, weakness or severe pain in the leg return to the emergency room. Follow-up with orthopedics in one week if you're not improved. Iván wrap and ice your leg. Med/Other Pt SpecificInfo: No Change to Meds Disposition: 01 DISCHARGE HOME Condition: Stable Loren Levi MD Aug 10, 2017 00:11
[2017-08-10 00:37] VITALS: BP 133/51
== END 2017-08-10 00:38 | disposition home or self-care (01) ==
LOC: NEPC 21:56
DX: S80.11XA Contusion of right lower leg, initial encounter (principal); M19.90 Unspecified osteoarthritis, unspecified site; F41.9 Anxiety disorder, unspecified; F32.9 Major depressive disorder, single episode, unspecified; W01.0XXA Fall on same level from slipping, tripping and stumbling without subsequent striking against object, initial encounter; Z88.5 Allergy status to narcotic agent; Z88.2 Allergy status to sulfonamides; Z79.899 Other long term (current) drug therapy; Z88.8 Allergy status to other drugs, medicaments and biological substances
CPT/HCPCS: 73552; 73564; 73590; 99283

== ENCOUNTER 2017-09-09 19:38 | Emergency (ER) | payer OTHER ==
[2017-09-09 19:40] VITALS: BP 164/92; PULSE 76; RESP 16; TEMP 98.4; O2SAT 96
[2017-09-09 20:53] LABS: BLOOD, URINE TRACE (NEG); COMMENT (UR) CULT NOT INDICATED; CULTURE IF INDICATED CULT NOT INDICATED; GLUCOSE,URINE NEG (NEG); KETONE, URINE NEG (NEG); MUCUS URINE FEW /lpf (OCC); NITRITE,URINE NEG (NEG); PH, URINE 6.5 (5.0-8.5); SQUAMOUS EPITHELIAL CELL URINE 2 /hpf (0-5); URINE COLOR YELLOW (YELLW/STRAW)
[2017-09-09] MEDS ORDERED: HYDR-3583 PO (20:54)
[2017-09-09 20:56] VITALS: BP 149/95; PULSE 86; RESP 18; O2SAT 99
[2017-09-09] MEDS ORDERED: SODIUM CHLOR 0.9% 1000 ML INJ 1,000 ML IV SCH (21:04)
[2017-09-09] MEDS ORDERED: SODIUM CHLORIDE 0.9% FLUSH 10 ML FLUSH IV FLUSH PRN (21:15)
[2017-09-09] MEDS ORDERED: ONDANSETRON HCL 4 MG/2 ML VIAL IVP ONE (21:15)
[2017-09-09] MEDS ORDERED: KETOROLAC TROMETHAMINE 30 MG/ML (IVP) VIAL IVP ONE (21:15)
[2017-09-09 22:11] LABS: AUTOMATED NEUTROPHIL # 3.5 TH/MM3 (1.8-7.7); BASOPHIL % 0.6 % (0.0-2.0); EOSINOPHIL # 0.1 TH/MM3 (0-0.4); EOSINOPHIL % 1.2 % (0.0-4.0); HEMATOCRIT 40.3 % (35.0-46.0); HEMO FLAGS DIFF FINAL; LYMPH % 37.2 % (9.0-44.0); LYMPHOCYTE # 2.5 TH/MM3 (1.0-4.8); MEAN CELL VOLUME 96.9 FL (80.0-100.0); MEAN CORPUSCULAR HEMOGLOBIN 33.2 PG (27.0-34.0); MEAN CORPUSCULAR HGB CONC 34.3 % (32.0-36.0); MONO % 8.7 % (0.0-8.0); NEUT % 52.3 % (16.0-70.0); PLATELET COUNT 296 TH/MM3 (150-450); RED BLOOD COUNT 4.16 MIL/MM3 (4.00-5.30); RED CELL DISTRIBUTION WIDTH 12.9 % (11.6-17.2); WHITE BLOOD COUNT 6.7 TH/MM3 (4.0-11.0)
[2017-09-09 22:24] LABS: APTT (PATIENT) 25.7 SEC (24.3-30.1); INTERNATIONAL NORMALIZED RATIO 0.9 RATIO; PROTHROMBIN TIME - PATIENT 9.6 SEC (9.8-11.6)
[2017-09-09 22:34] LABS: ANION GAP 8 MEQ/L (5-15); AST (GOT) 16 U/L (15-37); BICARBONATE 24.8 MEQ/L (21.0-32.0); BLOOD UREA NITROGEN 14 MG/DL (7-18); CHLORIDE 105 MEQ/L (98-107); GLOMERULAR FILTRATION RATE 83 ML/MIN (>89); POTASSIUM 3.4 MEQ/L (3.5-5.1); SODIUM (NA) 138 MEQ/L (136-145)
[2017-09-09 22:35] LABS: ALT (GPT) 18 U/L (10-53)
[2017-09-09 22:39] LABS: ALKALINE PHOSPHATASE 51 U/L (45-117); BETA HCG QUANT LESS THAN 1 MIU/ML (0-5); TOTAL BILIRUBIN ADULT 0.1 MG/DL (0.2-1.0)
--- NOTE | 2017-09-09 23:22 | RADRPT ---
EXAM DATE/TIME: 09/09/2017 22:54 [facility] COMPARISON: No previous studies available for comparison. INDICATIONS : Left back pain. ORAL CONTRAST: No oral contrast ingested. RADIATION DOSE: 8.14 CTDIvol (mGy) MEDICAL HISTORY : None SURGICAL HISTORY : Tubal ligation. Fusion, lumbar.Splenectomy. ENCOUNTER: Initial ACUITY: 1 day PAIN SCALE: 5/10 LOCATION: Left flank and back TECHNIQUE: Volumetric scanning of the abdomen and pelvis was performed. Using automated exposure control and ad justment of the mA and/or kV according to patient size, radiation dose was kept as low as reasonably achievable to obtain optimal diagnostic quality images. DICOM format image data is available electro nically for review and comparison. FINDINGS: LOWER LUNGS: The visualized lower lungs are clear. LIVER: Homogeneous density without lesion. Benign-appearing, punctate capsular calcification posteriorly in the right hepatic lobe. There is no dilation of the biliary tree. No calcified gallstones. SPLEEN: Normal size without lesion. PANCREAS: Within normal limits. KIDNEYS: Normal in size and shape. There is no mass, stone, or hydronephrosis. Benign-appearing cortical cyst posteromedially in the right middle pole ADRENAL GLANDS: Within normal limits. VASCULAR: There is no aortic aneurysm. BOWEL/MESENTERY: The stomach, small bowel, and colon demonstrate no acute abnormality. There is no free intraperitone al air or fluid. ABDOMINAL WALL: Within normal limits. RETROPERITONEUM: There is no lymphadenopathy. BLADDER: No wall thickening or mass. REPRODUCTIVE: Within normal limits. Probable 2.6 cm right ovarian cyst. INGUINAL: There is no lymphadenopathy or hernia. MUSCULOSKELETAL: Posterior fixation of the lumbosacral spine. Sclerosis about the SI joints bilaterally is characteris tic of bilateral sacroiliitis. CONCLUSION: 1. Posterior fixation of the lumbosacral spine with sclerosis about both SI joints characteristic of chronic sacroiliitis. 2. 2.6 cm probable right ovarian cyst. Benign-appearing right renal cortical cyst. 3. Otherwise, no acute intraperitoneal or pelvic process to explain current clinical symptoms Barrera Vines MD on September 09, 2017 at 23:16 Board Certified Radiologist. This report was verified electronically.
[2017-09-09 23:40] VITALS: BP 121/67; PULSE 74; RESP 18; O2SAT 98
[2017-09-10] MEDS ORDERED: TRAM50TA PO (00:16)
--- NOTE | 2017-09-10 00:16 | PD ---
HPI Chief Complaint: Flank/Kidney Pain Time Seen by Provider: 21:02 Travel History International Travel<30 days: No Contact w/Intl Traveler<30days: No Traveled to known affect area: No History of Present Illness HPI 46-year-old female here for evaluation of lower back pain. The patient reports history of chronic low back pain and has had surgery in her lumbar spine. She states that the pain is different now and is in her left flank and radiates to her left lower abdomen. She denies fevers or chills. No urinary symptoms. Pain is mild to moderate, sharp, shooting, worse with movements. She had one episode of urinary incontinence after coughing. Otherwise no urinary or bowel incontinence or retention. No fevers or chills. No nausea or vomiting. PFSH Past Medical History Arthritis: Yes Blood Disorders: No Anxiety: Yes Depression: Yes Heart Rhythm Problems: No Cancer: No Cardiac Catheterization: No Cardiovascular Problems: No High Cholesterol: No Congestive Heart Failure: No Diabetes: No Diminished Hearing: No Endocrine: No Gastrointestinal Disorders: No Genitourinary: No Headaches: Yes Hypertension: No Immune Disorder: No Musculoskeletal: Yes (CHRONIC BACK PAIN) Neurologic: Yes (CHRONIC BACK PAIN) Psychiatric: No Reproductive: Yes Respiratory: Yes Immunizations Current: Yes Tetanus Vaccination: < 5 Years Influenza Vaccination: Yes PNEUMOCCOCAL Vaccine (Year): 2 ?: Not LMP: 08/12/2017 : 3 Para: 2 Miscarriage: 0 : 0 Ectopic : Yes Dilation and Curettage (D&C): Yes Tubal Ligation: Yes Past Surgical History Abdominal Surgery: Yes (SPLEEN REMOVED AT AGE OF 3 S/P TRAUMA) Body Medical Devices: TITANIUM ANUSHA L5/S1 Coronary Artery Bypass Graft: No Endocrine Surgery: Yes (SPLEEN REMOVAL) Insulin Pump: No Other Surgery: Yes (SPLEENECTOMY) Family History Family Myocardial Infarction: Yes Social History Alcohol Use: Yes ("OCCASIONALLY") Tobacco Use: No Substance Use: No Allergies-Medications (Allergen,Severity, Reaction): Coded Allergies: Sulfa (Sulfonamide Antibiotics) (Verified Allergy, Severe, Nausea/Vomiting , 09/09/17) metronidazole (Verified Allergy, Severe, NAUSEA/VOMITING, 09/09/17) morphine (Verified Adverse Reaction, Intermediate, NAUSEA/VOMITING, ) Reported Meds & Prescriptions Reported Meds & Active Scripts Active Proventil Hfa 6.7 GM Inh (Albuterol Sulfate) 90 Mcg/Act Aer 2 Puff INH Q4-6H PRN Reported Hydrocodone-Acetamin 10-325 mg (Hydrocodone/Acetaminophen) 10 Mg-325 Mg Tablet 1 Tab PO Q4-6H Neurontin (Gabapentin) 300 Mg Cap 900 Mg PO TID Xanax (Alprazolam) 1 Mg Tab 1 Mg PO Q8H PRN Review of Systems Except as stated in HPI: all other systems reviewed are Neg Physical Exam Narrative GENERAL: Well-developed, well-nourished, comfortable, no apparent distress. SKIN: Focused skin assessment warm/dry. No rash. HEAD: Atraumatic. Normocephalic. EYES: Pupils equal and round. No scleral icterus. No injection or drainage. ENT: Mucous membranes pink and moist. NECK: Trachea midline. No JVD. CARDIOVASCULAR: Regular rate and rhythm. RESPIRATORY: No accessory muscle use. Clear to auscultation. Breath sounds equal bilaterally. GASTROINTESTINAL: Abdomen soft, non-tender, nondistended. MUSCULOSKELETAL: No obvious deformities. No clubbing. No cyanosis. No edema. No midline CVA tenderness. Mild left CVA tenderness. No right CVA tenderness. NEUROLOGICAL: Awake and alert. No obvious cranial nerve deficits. Motor grossly within normal limits. Normal speech. PSYCHIATRIC: Appropriate mood and affect; insight and judgment normal. Data Data Last Documented VS Vital Signs Date Time Temp Pulse Resp B/P (MAP) Pulse Ox O2 Delivery O2 Flow Rate FiO2 09/09/17 23:40 74 18 121/67 (85) 98 Room Air 09/09/17 19:40 98.4 Orders Orders Urinalysis - C+S If Indicated (09/09/17 20:03) Beta Hcg (Quant/Titer) (09/09/17 21:04) Complete Blood Count With Diff (09/09/17 21:04) Comprehensive Metabolic Panel (09/09/17 21:04) Prothrombin Time / Inr (Pt) (09/09/17 21:04) Act Partial Throm Time (Ptt) (09/09/17 21:04) Ct Abd/Pel W/O Iv Contrast (09/09/17 21:04) Iv Access Insert/Monitor (09/09/17 21:04) Ecg Monitoring (09/09/17 21:04) Oximetry (09/09/17 21:04) Ondansetron Inj (Zofran Inj) (09/09/17 21:15) Sodium Chlor 0.9% 1000 Ml Inj (Ns 1000 M (09/09/17 21:04) Sodium Chloride 0.9% Flush (Ns Flush) (09/09/17 21:15) Ketorolac Inj (Toradol Inj) (09/09/17 21:15) Labs Laboratory Tests Test 09/09/17 20:08 09/09/17 21:25 Urine Color YELLOW Urine Turbidity CLEAR Urine pH 6.5 Urine Specific [place] 1.021 Urine Protein NEG mg/dL Urine Glucose (UA) NEG mg/dL Urine Ketones NEG mg/dL Urine Occult Blood TRACE Urine Nitrite NEG Urine Bilirubin NEG Urine Urobilinogen LESS THAN 2.0 MG/DL Urine Leukocyte Esterase NEG Urine RBC 14 /hpf Urine WBC 1 /hpf Urine Squamous Epithelial Cells 2 /hpf Urine Mucus FEW /lpf Microscopic Urinalysis Comment CULT NOT INDICATED White Blood Count 6.7 TH/MM3 Red Blood Count 4.16 MIL/MM3 Hemoglobin 13.8 GM/DL Hematocrit 40.3 % Mean Corpuscular Volume 96.9 FL Mean Corpuscular Hemoglobin 33.2 PG Mean Corpuscular Hemoglobin Concent 34.3 % Red Cell Distribution Width 12.9 % Platelet Count 296 TH/MM3 Mean Platelet Volume 8.5 FL Neutrophils (%) (Auto) 52.3 % Lymphocytes (%) (Auto) 37.2 % Monocytes (%) (Auto) 8.7 % Eosinophils (%) (Auto) 1.2 % Basophils (%) (Auto) 0.6 % Neutrophils # (Auto) 3.5 TH/MM3 Lymphocytes # (Auto) 2.5 TH/MM3 Monocytes # (Auto) 0.6 TH/MM3 Eosinophils # (Auto) 0.1 TH/MM3 Basophils # (Auto) 0.0 TH/MM3 CBC Comment DIFF FINAL Differential Comment Prothrombin Time 9.6 SEC Prothromb Time International Ratio 0.9 RATIO Activated Partial Thromboplast Time 25.7 SEC Blood Urea Nitrogen 14 MG/DL Creatinine 0.88 MG/DL Random Glucose 106 MG/DL Total Protein 7.2 GM/DL Albumin 3.4 GM/DL Calcium Level 8.5 MG/DL Alkaline Phosphatase 51 U/L Aspartate Amino Transf (AST/SGOT) 16 U/L Alanine Aminotransferase (ALT/SGPT) 18 U/L Total Bilirubin 0.1 MG/DL Sodium Level 138 MEQ/L Potassium Level 3.4 MEQ/L Chloride Level 105 MEQ/L Carbon Dioxide Level 24.8 MEQ/L Anion Gap 8 MEQ/L Estimat Glomerular Filtration Rate 83 ML/MIN Human Chorionic Gonadotropin, Quant LESS THAN 1 MIU/ML MDM Medical Decision Making Medical Screen Exam Complete: Yes Emergency Medical Condition: Yes Differential Diagnosis Nephrolithiasis, ureterolithiasis, pyelonephritis, UTI, cystitis, colitis, musculoskeletal pain Narrative Course Vital signs show heart rate 76, blood pressure 164/92, pulse ox 96% on room air , oral temp of 98.4F. CBC: WBC 6.7, hemoglobin 13.8, hematocrit 40.3, platelets 296. CMP is essentially unremarkable. Beta hCG is negative. UA shows trace occult blood, 14 WBCs, negative nitrites, negative leukocyte esterase. CT abdomen pelvis: CONCLUSION: 1. Posterior fixation of the lumbosacral spine with sclerosis about both SI joints characteristic of chronic sacroiliitis. 2. 2.6 cm probable right ovarian cyst. Benign-appearing right renal cortical cyst. 3. Otherwise, no acute intraperitoneal or pelvic process to explain current clinical symptoms Patient was made aware of all findings. She is resting comfortably. She does not have any red flags for lower back pain. She is stable for discharge home with further workup as an outpatient. She was advised on when to return to the emergency department patient verbalizes understanding and agreement with plan. Diagnosis Primary Impression: Left flank pain Additional Impressions: Microscopic hematuria Sacroiliitis Referrals: Primary Care Physician 3 days Additional Instructions: Follow-up with your primary care physician this week. Return to the emergency department for worsening symptoms or any other concerns. Scripts Tramadol (Tramadol) 50 Mg Tab 50 MG PO Q6H Y for PAIN, #15 TAB 0 Refills Prov: Guy Alves MD 09/10/17 Disposition: 01 DISCHARGE HOME Condition: Stable Guy Alves MD Sep 10, 2017 00:16
== END 2017-09-10 00:36 | disposition home or self-care (01) ==
LOC: NEPD 19:38
DX: R10.9 Unspecified abdominal pain (principal); R31.29 Other microscopic hematuria; M46.1 Sacroiliitis, not elsewhere classified; N28.1 Cyst of kidney, acquired; M19.90 Unspecified osteoarthritis, unspecified site; F41.9 Anxiety disorder, unspecified; F32.9 Major depressive disorder, single episode, unspecified; Z79.899 Other long term (current) drug therapy; Z88.2 Allergy status to sulfonamides
CPT/HCPCS: 74176; 80053; 81001; 84702; 85025; 85610; 85730; 96361; 96374; 96375; 99285; J1885; J2405; J7030

== ENCOUNTER → 2018-02-06 | Day surgery (SDC) | payer OTHER ==
[~2018-02-06] MED LIST changes: +BUPIVACAINE HCL PF 0.25% 30 ML VIAL ONE; -HYDR-3535 PO; +HYDR-3583 PO; +KETOROLAC TROMETHAMINE 30 MG/ML (IVP) VIAL IV PUSH ONE; +LACTATED RINGER'S 1000 ML INJ 1,000 ML ONE; -LAMI250T PO; +MIDAZOLAM HCL 2 MG/2 ML VIAL ONE; +ONDANSETRON HCL 4 MG/2 ML VIAL IV PUSH ONE; +PROPOFOL 200 MG/20 ML AMP IV ONE; +TRAM50TA PO; +ceFAZolin 2 GM PREMIX 50 ML ONE; +oxyCODONE/ACETAMINOPHEN 5 MG/325 MG TAB ONE
--- NOTE | 2018-02-06 09:19 | RADRPT ---
EXAM DATE/TIME: 02/06/2018 08:08 [facility] COMPARISON: No previous studies available for comparison. INDICATIONS : Left second digit hammer toe correction. MEDICAL HISTORY : Unobtainable. SURGICAL HISTORY : Unobtainable. ENCOUNTER: Initial ACUITY: 1 day PAIN SCORE: Non-responsive. LOCATION: Left foot. FINDINGS: Three view examination of the left foot demonstrates a screw across the second PIP joint now in excel lent position. CONCLUSION: Surgery in the second PIP. A screw across the second PIP. Quan Petersen MD on February 06, 2018 at 9:16 Board Certified Radiologist. This report was verified electronically.
--- NOTE | 2018-02-14 16:26 | TN ---
cc: Ba Chapa DPM DATE OF SURGERY: 02/06/2018 DATE OF PROCEDURE: 02/06/2018 INDICATION FOR PROCEDURE: The patient presented to my clinic with a painful hammertoe to the left second toe as well as an extended length of the second toe compared to the great toe, which is causing significant discomfort in shoe gear and causing her toe to develop a contracture with pain in the joint. I discussed with her, not only shortening the digit to equal the great toe and allow for a better shoe fit, but to address the deformity correction in the toe as well. She agreed to move forward with hammertoe correction of the left second toe. DESCRIPTION OF PROCEDURE: The patient was seen in the preop holding by myself, nursing staff and anesthesia where the correct patient, side and site were all confirmed to be correct and the left second toe. She was then taken surgical suite in supine position. Left foot was prepped and draped in normal sterile fashion, followed by attention directed to the left foot. It was prepped and draped in normal sterile fashion after timeout was performed as per facility protocol. Attention was directed to the dorsal aspect of second digit, where a linear incision was made encompassing the metatarsophalangeal joint, as well as the proximal interphalangeal joint of the second toe. Careful dissection was taken down to the level of the proximal interphalangeal joint, where it was resected with a saw followed by utilization of the 8 mm HTR kit from [employer]. Reamers were utilized in order to remove cartilage and subchondral bone from the proximal interphalangeal joint from both the middle phalanx as well as the proximal phalanx and to remove approximately 5 mm of length from the digit. Following this, the [employer]illiant hammertoe implant was applied and deformity reduction and adequate fixation were confirmed using C-arm imaging. Following this, it was noted to require release of the contracture at the metatarsophalangeal joint and a capsulotomy was performed at the second metatarsophalangeal joint, as well as an extensor tendon lengthening in order to reduce further contracture at that level of the joint. Following this, the area was copiously irrigated, followed by closure with 3-0 Vicryl and 3-0 nylon suture, followed by a dressing consisting of Xeroform, 4 x 4's, cast padding and Iván bandage to the left foot. She tolerated the procedure and anesthesia well without complications and was taken back to PACU with vital signs stable and vascular status intact to the remainder of the left foot. She will be weightbearing as tolerated on the left foot in a surgical shoe and will followup in clinic in 1 week for a dressing change. SHORT OPERATIVE NOTE SURGEON: Ba Chapa DPM [employer]TENA[employer]CE: Staff. PREOPERATIVE DIAGNOSIS: Painful hammertoe, left second toe. POSTOPERATIVE DIAGNOSIS: Painful hammertoe, left second toe. PROCEDURE PERFORMED: 1. Hammertoe correction, left second toe. 2. Capsulotomy left 2nd metatarsophalangeal joint PROPHYLAXIS: 2 grams Ancef IV preop. PATHOLOGY: None. ESTIMATED BLOOD LOSS: Minimal. CONDITION: Stable to PACU. DISPOSITION: Weightbearing as tolerated on the left foot in surgical shoe. No tourniquet utilized. Followup in clinic in 1 week for a dressing change. CHLOE Andres/MILTON , 03:54 PM , 04:25 PM LUI
== END | disposition home or self-care (01) ==
LOC: ESDC 06:26
PROVIDERS: ATTEND Podiatrist Foot & Ankle Surgery
DX: M20.42 Other hammer toe(s) (acquired), left foot (principal)
CPT/HCPCS: 01470; 01480; 28270; 28285; 73630; 76000; C1713; J0690; J1885; J2250; J2405; J3010; J7120

== ENCOUNTER 2018-02-26 22:16 | Emergency (ER) | payer OTHER ==
[~2018-02-26 22:16] MED LIST changes: -BUPIVACAINE HCL PF 0.25% 30 ML VIAL ONE; -KETOROLAC TROMETHAMINE 30 MG/ML (IVP) VIAL IV PUSH ONE; -LACTATED RINGER'S 1000 ML INJ 1,000 ML ONE; -MIDAZOLAM HCL 2 MG/2 ML VIAL ONE; -ONDANSETRON HCL 4 MG/2 ML VIAL IV PUSH ONE; -PROPOFOL 200 MG/20 ML AMP IV ONE; -ceFAZolin 2 GM PREMIX 50 ML ONE; -oxyCODONE/ACETAMINOPHEN 5 MG/325 MG TAB ONE
[2018-02-26 22:19] VITALS: BP 163/88; PULSE 79; RESP 16; TEMP 98; O2SAT 100
[2018-02-26] MEDS ORDERED: OMEP20TA93 PO (22:30)
--- NOTE | 2018-02-26 22:41 | PD ---
HPI Chief Complaint: Fall Time Seen by Provider: 22:26 Travel History International Travel<30 days: No Contact w/Intl Traveler<30days: No Traveled to known affect area: No History of Present Illness HPI Patient is a 47-year-old female presenting to the emergency department for evaluation of back pain. Patient states she had a mechanical fall on Saturday. She states her pain is a 10 out of 10. She denies any bladder or bowel incontinence, no saddle paresthesia. She reports that the pain radiates down the back of her right leg. She recently had surgery on her left first toe, she saw Dr. Chapa today for reevaluation after the fall because she was experiencing pain in her foot as well. Patient reports the pain is shooting, worse with movement and changing of positions. She has been taking hydrocodone which she had for her surgery with no improvement in her symptoms. Onset of symptoms was gradual, she did not experience any significant pain in her back until the day after the fall. Symptoms are moderate in nature. No alleviating factors. PFSH Past Medical History Arthritis: Yes Anxiety: Yes Depression: Yes Headaches: Yes Musculoskeletal: Yes (CHRONIC BACK PAIN) Reproductive: Yes Immunizations Current: Yes PNEUMOCCOCAL Vaccine (Year): 2 ?: Not LMP: 02/2018 : 3 Para: 2 Miscarriage: 0 : 0 Ectopic : Yes Dilation and Curettage (D&C): Yes Tubal Ligation: Yes Past Surgical History Abdominal Surgery: Yes (SPLEEN REMOVED AT AGE OF 3 S/P TRAUMA) Body Medical Devices: TITANIUM ANUSHA L5/S1 Coronary Artery Bypass Graft: No Endocrine Surgery: Yes (SPLEEN REMOVAL) Insulin Pump: No Other Surgery: Yes (SPLEENECTOMY second toe left foot) Family History Family Myocardial Infarction: Yes Social History Alcohol Use: Yes ("OCCASIONALLY") Tobacco Use: No Substance Use: No Allergies-Medications (Allergen,Severity, Reaction): Coded Allergies: Sulfa (Sulfonamide Antibiotics) (Verified Allergy, Severe, Nausea/Vomiting , 02/26/18) metronidazole (Verified Allergy, Severe, NAUSEA/VOMITING, 02/26/18) morphine (Verified Adverse Reaction, Intermediate, NAUSEA/VOMITING, ) Reported Meds & Prescriptions Reported Meds & Active Scripts Active Proventil Hfa 6.7 GM Inh (Albuterol Sulfate) 90 Mcg/Act Aer 2 Puff INH Q4-6H PRN Reported Omeprazole 20 Mg Tab 20 Mg PO BID Hydrocodone-Acetamin 10-325 mg (Hydrocodone/Acetaminophen) 10 Mg-325 Mg Tablet 1 Tab PO Q4-6H Neurontin (Gabapentin) 300 Mg Cap 900 Mg PO TID Xanax (Alprazolam) 1 Mg Tab 1 Mg PO Q8H PRN Review of Systems Except as stated in HPI: all other systems reviewed are Neg Musculoskeletal: Positive: Myalgias, Arthralgias, Pain Physical Exam Narrative GENERAL: Well-developed, well-nourished, alert female. Presenting in no acute distress. SKIN: Warm and dry. HEAD: Atraumatic. Normocephalic. EYES: Pupils equal and round. No scleral icterus. No injection or drainage. ENT: No nasal bleeding or discharge. Mucous membranes pink and moist. NECK: Trachea midline. No JVD. CARDIOVASCULAR: Regular rate and rhythm. RESPIRATORY: No accessory muscle use. Clear to auscultation. Breath sounds equal bilaterally. GASTROINTESTINAL: Abdomen soft, non-tender, nondistended. Hepatic and splenic margins not palpable. MUSCULOSKELETAL: Extremities without clubbing, cyanosis, or edema. No obvious deformities. Tenderness to palpation to use paraspinal musculature in the lower lumbar region. No spinal tenderness or step-off noted. NEUROLOGICAL: Awake and alert. No obvious cranial nerve deficits. Motor grossly within normal limits. Five out of 5 muscle strength in the arms and legs. Normal speech. PSYCHIATRIC: Appropriate mood and affect; insight and judgment normal. Data Data Last Documented VS Vital Signs Date Time Temp Pulse Resp B/P (MAP) Pulse Ox O2 Delivery O2 Flow Rate FiO2 02/26/18 22:19 98.0 79 16 163/88 (113) 100 Orders Orders Spine, Lumbar - Ltd (Ap & Lat) (02/26/18 ) Sacrum And Coccyx (02/26/18 ) Dexamethasone Inj (Decadron Inj) (02/26/18 22:45) Ketorolac Inj (Toradol Inj) (02/26/18 22:45) Orphenadrine Inj (Norflex Inj) (02/26/18 22:45) Ed Urine Pregnancytest Poc (02/26/18 23:29) MDM Medical Decision Making Medical Screen Exam Complete: Yes Emergency Medical Condition: Yes Interpretation(s) Last Impressions Sacrum and Coccyx X-Ray 02/26/18 0000 Signed Impressions: Service Date/Time: Monday, February 26, 2018 23:37 - CONCLUSION: Unremarkable examination of the sacrum and coccyx. Sam Rodríguez Jr., MD Lumbar Spine X-Ray 02/26/18 0000 Signed Impressions: Service Date/Time: Monday, February 26, 2018 23:36 - CONCLUSION: 1. Prior L5- S1 posterior fixation. 2. Otherwise, unremarkable exam. Sam Rodríguez Jr., MD Vital Signs Date Time Temp Pulse Resp B/P (MAP) Pulse Ox O2 Delivery O2 Flow Rate FiO2 02/26/18 22:19 98.0 79 16 163/88 (113) 100 Differential Diagnosis Fracture versus sprain versus strain versus discogenic pain versus sciatica versus other Narrative Course Patient is a 47-year-old female presenting for evaluation of low back pain after sustaining a mechanical fall on Saturday. Patient's vital signs are stable. Imaging ordered and pending. Patient was given anti-inflammatory medication and muscle relaxer for pain. Imaging of the lumbar spine, sacrum and coccyx are negative for acute findings. Does show postsurgical changes to L5-S1. Hardware is intact. Patient was discharged home with a muscle relaxer and anti-inflammatory medication. She is encouraged to apply warm heat to the affected area, continue gentle range of motion exercises, follow-up with her primary doctor. She is encouraged return to emergency department any new or worsening symptoms. Patient was reassured at this time that there were no acute findings. Patient stable for discharge. Diagnosis Primary Impression: Back pain Qualified Codes: M54.41 - Lumbago with sciatica, right side Additional Impression: Fall Qualified Codes: W19.XXXA - Unspecified fall, initial encounter Referrals: Primary Care Physician 3 days Patient Instructions: Back Pain (ED), General Instructions Additional Instructions: Apply warm heat to the affected area, continue gentle range of motion exercises , avoid exacerbating activities, avoid bed rest Take medications as directed Follow-up with your primary doctor Return to emergency department for any new or worsening symptoms Flexeril in combination with narcotic pain medication may increase drowsiness, do not drive or operate machinery until you know how you react to this medication. Med/Other Pt SpecificInfo: Prescription(s) given Scripts Cyclobenzaprine (Flexeril) 10 Mg Tab 10 MG PO TID Y for MUSCLE SPASM, #30 TAB 0 Refills Prov: Amber Lisa 02/27/18 Ketorolac (Ketorolac) 10 Mg Tab 10 MG PO TID Y for Pain Management, #30 TAB 0 Refills Prov: Amber Lisa 02/27/18 Disposition: 01 DISCHARGE HOME Condition: Stable Amber Lisa February 26, 2018 22:41
[2018-02-26] MEDS ORDERED: ORPHENADRINE INJ 60 MG/2 ML AMP IM ONE (22:45)
[2018-02-26] MEDS ORDERED: DEXAMETHASONE SOD PHOS 20 MG/5 ML VIAL IM ONE (22:45)
[2018-02-26] MEDS ORDERED: KETOROLAC TROMETHAMINE 60 MG/2 ML (IM) VIAL IM ONE (22:45)
--- NOTE | 2018-02-26 23:58 | RADRPT ---
EXAM DATE/TIME: 02/26/2018 23:36 [facility] COMPARISON: No previous studies available for comparison. INDICATIONS : Lower back pain after fall. MEDICAL HISTORY : None. SURGICAL HISTORY : Lumbar surgery. ENCOUNTER: Initial ACUITY: 1 day PAIN SCORE: 7/10 LOCATION: Bilateral lower back. FINDINGS: AP and lateral views of the lumbar spine show bilateral transpedicular posterior fixation with interv ening bone graft device at L5-S1. Bony fusion is noted. Orthopedic hardware is intact. The remaining disc spaces and vertebral body heights are maintained. No fracture or dislocation. Paraspinal soft ti ssues are unremarkable. CONCLUSION: 1. Prior L5-S1 posterior fixation. 2. Otherwise, unremarkable exam. Sam Rodríguez Jr., MD on February 26, 2018 at 23:54 Board Certified Radiologist. This report was verified electronically.
--- NOTE | 2018-02-26 23:59 | RADRPT ---
EXAM DATE/TIME: 02/26/2018 23:37 [facility] COMPARISON: No previous studies available for comparison. INDICATIONS : Sacral pain after fall. MEDICAL HISTORY : None. SURGICAL HISTORY : Lumbar surgery. ENCOUNTER: Initial ACUITY: 1 day PAIN SCORE: 7/10 LOCATION: Bilateral lower back. FINDINGS: Two-view examination of the sacrum and coccyx demonstrates no evidence of fracture or malalignment. The sacral ala and foramina appear symmetric and intact. The coccyx appears unremarkable. The preve rtebral soft tissues are within normal limits. CONCLUSION: Unremarkable examination of the sacrum and coccyx. Sam Rodríguez Jr., MD on February 26, 2018 at 23:55 Board Certified Radiologist. This report was verified electronically.
[2018-02-27] MEDS ORDERED: CYCL10TA PO (00:21)
[2018-02-27] MEDS ORDERED: KETO10 PO (00:21)
== END 2018-02-27 00:53 | disposition home or self-care (01) ==
LOC: NEPD 22:16
DX: M54.41 Lumbago with sciatica, right side (principal); W19.XXXA Unspecified fall, initial encounter; F41.9 Anxiety disorder, unspecified; F32.9 Major depressive disorder, single episode, unspecified; Z88.5 Allergy status to narcotic agent; Z88.2 Allergy status to sulfonamides; Z79.899 Other long term (current) drug therapy
CPT/HCPCS: 72100; 72220; 84703; 96372; 99283; J1100; J1885; J2360